=== PATIENT | female | born 1970 | race African-American/Black ===

== ENCOUNTER 2019-06-02 13:18 | Inpatient (IN) | payer BC ==
[2019-06-02 17:47] VITALS: BMI 19.5
--- NOTE | 2019-06-02 18:12 | HP ---
CIWA Score Nausea/Vomitin-Mild Nausea/No Vomiting Muscle Tremors: None Anxiety: 1-Mildly Anxious Agitation: 1-Slight > Activity Paroxysmal Sweats: No Perspiration Orientation: 0-Oriented Tacttile Disturbances: 0-None Auditory Disturbances: 0-None Visual Disturbances: 0-None Headache: 0-None Present CIWA-Ar Total Score: 3 - Admission Criteria OASAS Guidelines: Admission for Medically Managed Detox: Requires at least one of the followin. CIWA greater than 12 2. Seizures within the past 24 hours 3. Delirium tremens within the past 24 hours 4. Hallucinations within the past 24 hours 5. Acute intervention needed for co occurring medical disorder 6. Acute intervention needed for co occurring psychiatric disorder 7. Severe withdrawal that cannot be handled at a lower level of care (continued vomiting, continued diarrhea, abnormal vital signs) requiring intravenous medication and/or fluids 8. Admitting History and Physical - Past Medical History ...LMP: 07/16/16 - Smoking History Smoking history: Never smoked Have you smoked in the past 12 months: No - Alcohol/Substance Use Hx Alcohol Use: Yes Admission [facility] Chief Complaint: Brad Evans is a 48 year female presenting for alcohol detox. Allergies/Adverse Reactions: Allergies Allergy/AdvReac Type Severity Reaction Status Date / Time No Known Allergies Allergy Verified 06/02/19 17:34 History of Present Illness: Brad Evans is a 48 year female presenting for alcohol detox. Alcohol: 4-5 beers per day. Drinking daily. Last drink was today. Longest period of sobriety: 1 year. Denies history of seizure, blackouts. Endorses falls , head hits. States is currently on naltrexone but does not take it regularly. Last dose taken was 2 months prior. Withdrawal symptoms: tremors, anxiety, nausea. Was sent over by [facility]. Denies other drug use. Has been to detox in the past. States she wants to go to AA meetings and continue taking naltrexone to cease drinking. Medical History: GERD, back pain, arthritis Psychiatric: anxiety, depression Surgical History: endoscopy, D+C Social: denies Social: apartment. Currently unemployed. Utox: NEG SONAM 0.328 Patient currently intoxicated. Will be admitted for detox due to expected withdrawal symptoms. Will talk to counselor about options after detox. Counseled on continuing naltrexone if she wants to continue treatment for alcohol abuse. Exam Limitations: Intoxication - Ebola screening Have you traveled outside of the country in the last 21 days: No Have you had contact with anyone from an Ebola affected area: No Do you have a fever: No - Review of Systems Constitutional: No Symptoms Reported EENT: reports: Nose Congestion Respiratory: reports: No Symptoms reported Cardiac: reports: No Symptoms Reported GI: reports: No Symptoms Reported : reports: No Symptoms Reported Musculoskeletal: reports: No Symptoms Reported Integumentary: reports: No Symptoms Reported Neuro: reports: No Symptoms reported Endocrine: reports: No Symptoms Reported Hematology: reports: No Symptoms Reported Psychiatric: reports: Orientated x3, Anxious Patient History - Patient Medical History Hx Anemia: No Hx Asthma: No Hx Chronic Obstructive Pulmonary Disease (COPD): No Hx Cancer: No Hx Cardiac Disorders: No Hx Congestive Heart Failure: No Hx Hypertension: No Hx Hypercholesterolemia: No Hx Pacemaker: No HX Cerebrovascular Accident: No Hx Seizures: No Hx Dementia: No Hx Diabetes: No Hx Gastrointestinal Disorders: No Hx Liver Disease: No Hx Genitourinary Disorders: No Hx Sexually Transmitted Disorders: No Hx Renal Disease (ESRD): No Hx Thyroid Disease: No Hx Human Immunodeficiency Virus (HIV): No (last 2014 negative) Hx Hepatitis C: No Hx Depression: No Hx Suicide Attempt: No Hx Bipolar Disorder: No Hx Schizophrenia: No - Patient Surgical History Past Surgical History: No Hx Neurologic Surgery: No Hx Cataract Extraction: No Hx Cardiac Surgery: No Hx Lung Surgery: No Hx Breast Surgery: No Hx Breast Biopsy: No Hx Abdominal Surgery: No Hx Appendectomy: No Hx Cholecystectomy: No Hx Genitourinary Surgery: No Hx Section: No Hx Orthopedic Surgery: No Anesthesia Reaction: No - PPD History Previous Implant?: Yes Documented Results: Negative w/o proof Date: 08/24/16 PPD to be Administered?: Yes - Reproductive History Patient is a Female of Child Bearing Age (11 -55 yrs old): Yes Last Menstrual Period: 05/11/19 Patient : No - Smoking Cessation Smoking history: Never smoked Have you smoked in the past 12 months: No Hx Chewing Tobacco Use: No - Substance & Tx. History Hx Alcohol Use: Yes Hx Substance Use: No Substance Use Type: Alcohol - Substances abused Alcohol Substance route: Oral Frequency: Daily Amount used: BEER- 4 (16OZ) Age of first use: 23 Date of last use: 06/02/19 Admission Physical Exam S - Vital Signs Vital Signs: Vital Signs - 24 hr 06/02/19 17:31 Temperature 96.9 F L Pulse Rate 85 Respiratory 18 Rate Blood Pressure 110/81 - Physical General Appearance: Yes: Disheveled, Mild Distress HEENTM: Yes: Normocephalic, Normal Voice, CORIE, Pharynx Normal Respiratory: Yes: Chest Non-Tender, Lungs Clear, Normal Breath Sounds, No Respiratory Distress, No Accessory Muscle Use Neck: Yes: No masses,lesions,Nodules, Trachea in good position Breast: Yes: Breast Exam Deferred Cardiology: Yes: Regular Rhythm, Regular Rate, S1, S2, Murmur (mild systolic murmur appreciated at R sternal border) Abdominal: Yes: Normal Bowel Sounds, Non Tender, Flat, Soft Genitourinary: Yes: Within Normal Limits Back: Yes: Normal Inspection Musculoskeletal: Yes: full range of Motion Extremities: Yes: Normal Capillary Refill, Normal Inspection, Normal Range of Motion, Non-Tender, Other (small lipoma appreciated on L arm) Neurological: Yes: audio engineer II-XII NML intact, Alert, Motor Strength 5/5, Normal Response Integumentary: Yes: Normal Color, Dry, Warm - Diagnostic (1) Alcohol dependence with intoxication Current Visit: No Status: Acute (2) Alcohol dependence with uncomplicated withdrawal Current Visit: No Status: Acute (3) Anxiety and depression Current Visit: No Status: Acute (4) Weight loss Current Visit: No Status: Acute Breathalyzer - Breathalyzer Breathalyzer: 0.328 Urine Drug Screen - Test Device Lot number: [id number] Expiration date: 01/23/21 - Control Is test valid?: Yes - Results Drug screen NEGATIVE: Yes Inpatient Rehab Admission - Rehab Decision to Admit Inpatient rehab admission?: No
--- NOTE | 2019-06-02 18:32 | PN ---
Teaching Attending Note Name of Resident: Amarjit Chappell ATTENDING PHYSICIAN STATEMENT I saw and evaluated the patient. I reviewed the resident's note and discussed the case with the resident. I agree with the resident's findings and plan as documented. SUBJECTIVE: 48 yo with GERD, arthritis, back pain, dysfunctional uterine bleeding, here for alcohol detox. SONAM-0.328. OBJECTIVE: Vital Signs - 24 hr 06/02/19 17:31 Temperature 96.9 F L Pulse Rate 85 Respiratory 18 Rate Blood Pressure 110/81 tremulous ASSESSMENT AND PLAN: Alcohol use disorder- alcohol detox
[2019-06-02] MEDS ORDERED: IBUPROFEN 400 MG TABLET (FP) PO PRN (18:40)
[2019-06-02] MEDS ORDERED: MAGNESIUM HYDROX 2400MG/30ML ORAL SUSPENSION 30 ML CUP PO PRN (18:40)
[2019-06-02] MEDS ORDERED: hydrOXYzine PAMOATE 25 MG CAPSULE (FP) PO PRN (18:40)
[2019-06-02] MEDS ORDERED: MENTHOL/PHENOL 1 EACH UD MM PRN (18:40)
[2019-06-02] MEDS ORDERED: BISMUTH SUBSALICYLATE 524 MG/30 ML UD PO PRN (18:40)
[2019-06-02] MEDS ORDERED: ACETAMINOPHEN 325 MG TABLET (FP) PO PRN ×2 (18:40)
[2019-06-02] MEDS ORDERED: MAGNESIUM CITRATE 300 ML BOTTLE PO PRN (18:40)
[2019-06-02] MEDS: chlordiazePOXIDE HCL 10 MG CAPSULE PO PRN (19:45)
[2019-06-02] MEDS: chlordiazePOXIDE HCL 25 MG CAPSULE PO SCH (22:16)
[2019-06-02] MEDS: THIAMINE HCL 100 MG TABLET (FP) PO SCH (22:16)
[2019-06-02] MEDS: MELATONIN 5 MG TABLETS PO PRN (22:17)
[2019-06-03] MEDS: chlordiazePOXIDE HCL 25 MG CAPSULE PO SCH ×3 (05:46→22:18)
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
[2019-06-03 10:07] LABS: ALBUMIN 3.6 g/dl (3.4-5.0); BILIRUBIN,TOTAL 0.6 mg/dL (0.2-1); BLOOD UREA NITROGEN 9.9 mg/dL (7-18); CALCIUM 8.9 mg/dL (8.5-10.1); CREATININE 0.7 mg/dL (0.55-1.3); POTASSIUM 3.8 mmol/L (3.5-5.1); TOT PROT 7.6 g/dl (6.4-8.2)
[2019-06-03] MEDS: PANTOPRAZOLE 40 MG TABLET (FP) PO SCH (10:12)
[2019-06-03] MEDS: PRENATAL VITAMINS W/ FOLIC ACID TABLET (FP) PO SCH (10:12)
[2019-06-03 10:19] LABS: HEMATOCRIT 34.1 % (32.4-45.2); HEMOGLOBIN 12.2 GM/dL (10.7-15.3); MCH 38.2 pg (25.7-33.7); MCHC 35.8 g/dl (32.0-36.0); MEAN CELL VOLUME 106.8 fl (80-96); MEAN PLT VOLUME 9.9 fl (7.5-11.1); PLATELET COUNT 113 K/MM3 (134-434); RBC 3.19 M/mm3 (3.60-5.2); RDW 13.3 % (11.6-15.6); WHITE BLOOD COUNT 3.2 K/mm3 (4.0-10.0)
[2019-06-03] MEDS: MAG HYDROX/AL HYDROX/SIMETH 30 ML UNIT-DOSE CUP PO PRN (11:42)
--- NOTE | 2019-06-03 14:34 | PN ---
S CIWA - CIWA Score Nausea/Vomitin-No Nausea/No Vomiting Muscle Tremors: 2 Anxiety: 2 Agitation: 2 Paroxysmal Sweats: 1-Minimal Palms Moist Orientation: 0-Oriented Tacttile Disturbances: 0-None Auditory Disturbances: 0-None Visual Disturbances: 0-None Headache: 0-None Present CIWA-Ar Total Score: 7 S Progress Note (SOAP) Subjective: chills body aches sweats Objective: 06/03/19 14:33 Vital Signs Temperature 98.2 F 06/03/19 09:03 Pulse Rate 87 06/03/19 09:03 Respiratory Rate 16 06/03/19 09:03 Blood Pressure 120/78 06/03/19 09:03 O2 Sat by Pulse Oximetry (%) Laboratory Tests 06/03/19 06/03/19 06/03/19 08:00 08:00 08:00 WBC 3.2 L RBC 3.19 L Hgb 12.2 Hct 34.1 MCV 106.8 H MCH 38.2 H D MCHC 35.8 RDW 13.3 Plt Count 113 L D MPV 9.9 D Sodium 143 Potassium 3.8 Chloride 110 H Carbon Dioxide 23 Anion Gap 10 BUN 9.9 Creatinine 0.7 Est GFR (CKD-EPI)AfAm 119.58 Est GFR (CKD-EPI)NonAf 103.18 Random Glucose 75 Calcium 8.9 Total Bilirubin 0.6 AST 86 H ALT 64 H Alkaline Phosphatase 33 L Total Protein 7.6 Albumin 3.6 RPR Titer Nonreactive labs noted aaox3 ambulating no acute distress Assessment: 06/03/19 14:33 withdrawals Plan: continue detox increase fluids
[2019-06-03] MEDS: chlordiazePOXIDE HCL 10 MG CAPSULE PO PRN (17:42)
[2019-06-03] MEDS: hydrOXYzine PAMOATE 50 MG CAPSULE (FP) PO PRN (17:42)
[2019-06-03] MEDS: THIAMINE HCL 100 MG TABLET (FP) PO SCH (22:18)
[2019-06-03] MEDS: MELATONIN 5 MG TABLETS PO PRN (22:18)
[2019-06-04] MEDS: chlordiazePOXIDE 5 MG CAPSULE PO SCH ×3 (06:01→21:36)
[2019-06-04] MEDS: PANTOPRAZOLE 40 MG TABLET (FP) PO SCH (10:57)
[2019-06-04] MEDS: PRENATAL VITAMINS W/ FOLIC ACID TABLET (FP) PO SCH (10:57)
--- NOTE | 2019-06-04 14:34 | PN ---
S CIWA - CIWA Score Nausea/Vomitin-No Nausea/No Vomiting Muscle Tremors: 2 Anxiety: 1-Mildly Anxious Agitation: 2 Paroxysmal Sweats: 1-Minimal Palms Moist Orientation: 0-Oriented Tacttile Disturbances: 0-None Auditory Disturbances: 0-None Visual Disturbances: 0-None Headache: 0-None Present CIWA-Ar Total Score: 6 BHS Progress Note (SOAP) Subjective: sweats interrupted sleep Objective: 06/04/19 14:34 Vital Signs Temperature 98.6 F 06/04/19 13:04 Pulse Rate 69 06/04/19 13:04 Respiratory Rate 18 06/04/19 13:04 Blood Pressure 120/88 06/04/19 13:04 O2 Sat by Pulse Oximetry (%) Laboratory Tests 06/03/19 06/03/19 06/03/19 08:00 08:00 08:00 WBC 3.2 L RBC 3.19 L Hgb 12.2 Hct 34.1 MCV 106.8 H MCH 38.2 H D MCHC 35.8 RDW 13.3 Plt Count 113 L D MPV 9.9 D Sodium 143 Potassium 3.8 Chloride 110 H Carbon Dioxide 23 Anion Gap 10 BUN 9.9 Creatinine 0.7 Est GFR (CKD-EPI)AfAm 119.58 Est GFR (CKD-EPI)NonAf 103.18 Random Glucose 75 Calcium 8.9 Total Bilirubin 0.6 AST 86 H ALT 64 H Alkaline Phosphatase 33 L Total Protein 7.6 Albumin 3.6 RPR Titer Nonreactive labs noted aaox3 ambulating no acute distress Assessment: 06/04/19 14:34 withdrawals Plan: continue detox increase fluids
[2019-06-04] MEDS: THIAMINE HCL 100 MG TABLET (FP) PO SCH (21:36)
[2019-06-04] MEDS: MELATONIN 5 MG TABLETS PO PRN (21:36)
[2019-06-05] MEDS ORDERED: chlordiazePOXIDE HCL 10 MG CAPSULE PO PRN
[2019-06-05] MEDS: chlordiazePOXIDE HCL 10 MG CAPSULE PO SCH ×3 (05:38→22:35)
[2019-06-05] MEDS: PRENATAL VITAMINS W/ FOLIC ACID TABLET (FP) PO SCH (10:24)
[2019-06-05] MEDS: PANTOPRAZOLE 40 MG TABLET (FP) PO SCH (10:24)
--- NOTE | 2019-06-05 13:36 | PN ---
S CIWA - CIWA Score Nausea/Vomitin-No Nausea/No Vomiting Muscle Tremors: 2 Anxiety: 1-Mildly Anxious Agitation: 0-Normal Activity Paroxysmal Sweats: 1-Minimal Palms Moist Orientation: 0-Oriented Tacttile Disturbances: 3-Moderate Itch/Numb/Burn Auditory Disturbances: 0-None Visual Disturbances: 0-None Headache: 0-None Present CIWA-Ar Total Score: 7 BHS Progress Note (SOAP) Subjective: sweats mild shakes Objective: 06/05/19 13:36 Vital Signs Temperature 98.1 F 06/05/19 09:59 Pulse Rate 90 06/05/19 09:59 Respiratory Rate 18 06/05/19 09:59 Blood Pressure 116/86 06/05/19 09:59 O2 Sat by Pulse Oximetry (%) aaox3 ambulating no acute distress Assessment: 06/05/19 13:36 withdrawals Plan: continue detox increase fluids d/c in am
[2019-06-05] MEDS: hydrOXYzine PAMOATE 50 MG CAPSULE (FP) PO PRN (18:12)
[2019-06-05] MEDS: MAG HYDROX/AL HYDROX/SIMETH 30 ML UNIT-DOSE CUP PO PRN (19:11)
[2019-06-05] MEDS: THIAMINE HCL 100 MG TABLET (FP) PO SCH (22:35)
[2019-06-05] MEDS: MELATONIN 5 MG TABLETS PO PRN (22:35)
[2019-06-06] MEDS ORDERED: chlordiazePOXIDE HCL 10 MG CAPSULE PO ONE (05:00)
[2019-06-06 09:43] VITALS: BP 122/83; PULSE 132; TEMP 98.2
--- NOTE | 2019-06-06 09:47 | DS ---
[facility] Detox Discharge Summary Admission Date: 06/02/19 Discharge Date: 06/06/19 - History Present History: Alcohol Dependence - Physical Exam Results Vital Signs: Vital Signs Temperature 98.2 F 06/06/19 09:43 Pulse Rate 132 H 06/06/19 09:43 Respiratory Rate 20 06/06/19 09:43 Blood Pressure 122/83 06/06/19 09:43 O2 Sat by Pulse Oximetry (%) Pertinent Admission Physical Exam Findings: pt arrived in withdrawals Laboratory Tests 06/03/19 06/03/19 06/03/19 08:00 08:00 08:00 WBC 3.2 L RBC 3.19 L Hgb 12.2 Hct 34.1 MCV 106.8 H MCH 38.2 H D MCHC 35.8 RDW 13.3 Plt Count 113 L D MPV 9.9 D Sodium 143 Potassium 3.8 Chloride 110 H Carbon Dioxide 23 Anion Gap 10 BUN 9.9 Creatinine 0.7 Est GFR (CKD-EPI)AfAm 119.58 Est GFR (CKD-EPI)NonAf 103.18 Random Glucose 75 Calcium 8.9 Total Bilirubin 0.6 AST 86 H ALT 64 H Alkaline Phosphatase 33 L Total Protein 7.6 Albumin 3.6 RPR Titer Nonreactive today pt is aaox3 ambulating no acute distress no s/s of withdrawals - Treatment Hospital Course: Detox Protocol Followed, Detoxed Safely, Responded well, Discharged Condition Good, Rehab Referral Accepted Patient has Accepted a Rehab Referral to: pt declined rehab; referral provided - Medication Discharge Medications: Ambulatory Orders Cetirizine HCl 10 mg PO DAILY 06/02/19 Hydroxyzine HCl 50 mg PO PRN PRN 06/02/19 Medroxyprogesterone Acetate [Provera -] 10 mg PO DAILY 06/02/19 Naltrexone HCl [Revia -] 50 mg PO DAILY 06/02/19 Pantoprazole Sodium [Protonix -] 40 mg PO DAILY 06/02/19 - Diagnosis (1) Alcohol-induced anxiety disorder Current Visit: Yes Status: Acute (2) Anxiety disorder Current Visit: Yes Status: Chronic (3) GERD (gastroesophageal reflux disease) Current Visit: Yes Status: Chronic Qualifiers: Esophagitis presence: without esophagitis Qualified Code(s): K21.9 - Gastro -esophageal reflux disease without esophagitis (4) Alcohol dependence with uncomplicated withdrawal Current Visit: Yes Status: Chronic (5) Alcohol-induced anxiety disorder Current Visit: No Status: Acute (6) Anxiety and depression Current Visit: No Status: Acute (7) Insomnia Current Visit: No Status: Acute - AMA Did Patient Leave Against Medical Advice: No
== END 2019-06-06 10:45 | disposition home or self-care (01) | DRG 775 ==
LOC: YASAS 13:18 → Y6N 18:59
PROVIDERS: ADMIT Allergy & Immunology; ATTEND Allergy & Immunology
PROC: HZ2ZZZZ Detoxification Services for Substance Abuse Treatment (ICD-10-PCS; principal; 2019-06-02)
DX: F10.230 Alcohol dependence with withdrawal, uncomplicated (principal); F10.280 Alcohol dependence with alcohol-induced anxiety disorder; F41.8 Other specified anxiety disorders; F32.9 Major depressive disorder, single episode, unspecified; K21.9 Gastro-esophageal reflux disease without esophagitis; M54.9 Dorsalgia, unspecified; R63.4 Abnormal weight loss; Z68.1 Body mass index [BMI] 19.9 or less, adult; Z87.42 Personal history of other diseases of the female genital tract
CPT/HCPCS: 36415; 80053; 85027; 86593